=== PATIENT | female | born 1940 | race Caucasian/White ===

== ENCOUNTER 2016-08-26 15:42 | Emergency (ER) | payer MEDICARE, OTHER | END 2016-08-26 20:23 | disposition home or self-care (01) | LOC: ER 15:42 | DX: R25.9 Unspecified abnormal involuntary movements (principal); E11.9 Type 2 diabetes mellitus without complications; Z79.84 Long term (current) use of oral hypoglycemic drugs; I10 Essential (primary) hypertension; K21.9 Gastro-esophageal reflux disease without esophagitis; E78.5 Hyperlipidemia, unspecified; Z96.649 Presence of unspecified artificial hip joint | CPT/HCPCS: 36415; 80053; 81003; 83690; 85025 ==

== ENCOUNTER 2016-09-07 09:45 | Emergency (ER) | payer MEDICARE, OTHER ==
[2016-09-07] MEDS ORDERED: ASPIRIN 81 MG CHEW TAB ONE (10:34)
[2016-09-07] MEDS ORDERED: LIDOCAINE 2% VISC 15 ML UDC ONE (10:34)
[2016-09-07] MEDS ORDERED: ALU/MAG/SIM 30 ML UDC ONE (10:34)
== END 2016-09-07 12:30 | disposition home or self-care (01) ==
LOC: ER 09:45
DX: K20.9 Esophagitis, unspecified (principal); K22.4 Dyskinesia of esophagus; E11.9 Type 2 diabetes mellitus without complications; I10 Essential (primary) hypertension; E78.00 Pure hypercholesterolemia, unspecified; Z79.84 Long term (current) use of oral hypoglycemic drugs
CPT/HCPCS: 36415; 71010; 80053; 82550; 83735; 84484; 85025; 85610; 85730; 93005